=== PATIENT | female | born 2005 | race Caucasian/White ===

== ENCOUNTER 2025-01-28 16:54 | Inpatient (IN) | payer OTHER ==
[~2025-01-28] VITALS: Ht 160 cm; Wt 59.0 kg
[2025-01-28 15:51] VITALS: BP 111/63
[~2025-01-28 16:54] MED LIST: BETAMETHASONE ACETATE,SOD PHOS 30 MG/5 ML ML ONE
[2025-01-28] MEDS ORDERED: BETAMETHASONE ACETATE,SOD PHOS 30 MG/5 ML ML IM STA (17:06)
[2025-01-28] MEDS ORDERED: TERBUTALINE SULFATE 1 MG/ML AMPUL SUBCUTANEO NR ×2 (17:15→19:00)
[2025-01-28] MEDS ORDERED: MORPHINE SULFATE 4 MG/ML VIAL IV PRN (17:15)
[2025-01-28] MEDS ORDERED: RINGERS SOLUTION,LACTATED 1,000 ML IV SCH (17:15)
[2025-01-28] MEDS ORDERED: PRENATA CHEWAB1 EACH PO (17:20)
[2025-01-28] MEDS ORDERED: TERBUTALINE SULFATE 1 MG/ML AMPUL SUBCUTANEO STA (17:55)
[2025-01-28 18:07] LABS: BASO % 0.5 % (0.1-1.2); EOS # 0.12 (0.04-0.54); EOS % 1.2 % (0.7-7.0); LYMPH # 2.18 (1.18-3.74); LYMPH % 22.3 % (19.3-53.1); MEAN PLATELET VOLUME 10.70 fl (9.4-12.4); MONO # 1.00 (0.24-0.82); MONO % 10.2 % (4.7-12.5); NEUT # 6.31 (1.56-6.13); NEUT % 64.8 % (34.0-71.1); RED CELL DISTRIBUTION WIDTH 15.0 % (11.6-14.4)
[2025-01-28 18:10] LABS: URINE APPEARANCE Clear; URINE BILIRRUBIN Negative (NEGATIVE); URINE BLOOD Negative; URINE COLOR Yellow; URINE GLUCOSE Negative (NEGATIVE); URINE KETONE Negative (NEGATIVE); URINE LEUKOCYTE Trace; URINE NITRATE Negative; URINE PROTEIN Negative (NEGATIVE); URINE UROBILINOGEN 0.2 E.U./dl
[2025-01-28 18:13] LABS: URINE BACTERIA 335.0 uL (0.0-1933); URINE CAST 0.00 uL (0.0-1.40); URINE EPITHELIAL CELLS 15.0 uL (0.0-38.8); URINE RBC 2.8 uL (0.0-20.8); URINE WBC 16.5 uL (0.0-23.2)
[2025-01-28 18:25] LABS: INR 0.94
[2025-01-28 18:35] LABS: ALT/SGPT 13.0 U/L (12-78); AST/SGOT 14.0 U/L (15-37); BILIRUBIN TOTAL 0.79 mg/dL (0.3-1.2); BUN CREA RATIO 11.0 (7.0-25.0); CREATININE SERUM 0.54 mg/dL (0.55-1.02); GFR 145.44; GLOBULINA 4.0 G/DL (2.4-3.5); GLUCOSE FASTING 75.0 mg/dL (65-100); OSMOLALITY SERUM 278.0 MOSM/KG (275-295)
[2025-01-28] MEDS ORDERED: CEFAZOLIN SODIUM 1,000 MG VIAL IV SCH ×2 (19:05→21:00)
[2025-01-28 19:20] VITALS: BP 114/71
[2025-01-28 22:22] VITALS: BP 100/64
[2025-01-28 23:17] VITALS: BP 94/57
[2025-01-29 04:14] VITALS: BP 84/50
[2025-01-29 04:52] VITALS: BP 111/63
[2025-01-29 06:56] VITALS: BP 90/61
[2025-01-29] MEDS ORDERED: ERYTHROMYCIN BASE OPHT 1GM EACH TUBE OP ONE (08:45)
[2025-01-29] MEDS ORDERED: OXYTOCIN 10 UNITS/ML VIAL ONE (08:52)
[2025-01-29] MEDS ORDERED: CEFAZOLIN SODIUM 1,000 MG VIAL ONE (12:11)
[2025-01-29] MEDS ORDERED: MORPHINE SULFATE 4 MG/ML VIAL IV SCH (13:00)
[2025-01-29 15:32] LABS: BASO % 0.2 % (0.1-1.2); EOS # 0.00 (0.04-0.54); EOS % 0.0 % (0.7-7.0); LYMPH # 1.00 (1.18-3.74); LYMPH % 5.4 % (19.3-53.1); MEAN PLATELET VOLUME 10.80 fl (9.4-12.4); MONO # 1.40 (0.24-0.82); MONO % 7.5 % (4.7-12.5); NEUT # 15.98 (1.56-6.13); NEUT % 86.0 % (34.0-71.1); RED CELL DISTRIBUTION WIDTH 15.8 % (11.6-14.4)
[2025-01-29] MEDS ORDERED: BETAMETHASONE ACETATE,SOD PHOS 30 MG/5 ML ML IM NR (17:00)
[2025-01-29 18:38] VITALS: BP 113/64
[2025-01-29] MEDS ORDERED: KETOROLAC TROMETHAMINE 60 MG VIAL IM ONE (20:00)
[2025-01-30] VITALS: BP 110/72
[2025-01-30] MEDS ORDERED: OxyCODONE HCL 5 MG TABLET (ROXICODONE) PO SCH (05:00)
[2025-01-30] MEDS ORDERED: PNV,CALCIUM 72/IRON/FOLIC ACID 1 TAB TABLET PO SCH (08:00)
[2025-01-30] MEDS ORDERED: SIMETHICONE 125 MG CAPSULE PO SCH (08:00)
[2025-01-30] MEDS ORDERED: DOCUSATE SODIUM 100MG CAP PO SCH (08:00)
[2025-01-30 18:30] VITALS: BP 94/61
[2025-01-31 01:00] VITALS: BP 105/67
[2025-01-31 09:37] VITALS: BP 105/67
[2025-01-31 13:07] VITALS: BP 117/76
[2025-01-31] MEDS ORDERED: ACETAMINOPHEN 500 MG GEL..CAP PO SCH (17:00)
[2025-01-31 18:00] VITALS: BP 103/66
[2025-02-01 03:25] VITALS: BP 94/60
[2025-02-01 08:04] VITALS: BP 103/64
== END 2025-02-01 18:22 | disposition home or self-care (01) | DRG 786 ==
LOC: OBS/DEL 16:54 → O/R 01-29 04:54 → OB/GYN 01-29 04:54 → LDR 01-29 04:54 → OBS/DEL 01-29 04:54 → O/R 01-29 10:16 → OB/GYN 01-29 15:04
PROVIDERS: ADMIT Obstetrics & Gynecology; ATTEND Obstetrics & Gynecology
PROC: 4A1HXCZ Monitoring of Products of Conception, Cardiac Rate, External Approach (ICD-10-PCS; 2025-01-29)
PROC: 10D00Z1 Extraction of Products of Conception, Low, Open Approach (ICD-10-PCS; principal; 2025-01-29 10:00)
DX: O36.8330 Maternal care for abnormalities of the fetal heart rate or rhythm, third trimester, not applicable or unspecified (principal); O60.14X0 Preterm labor third trimester with preterm delivery third trimester, not applicable or unspecified; O76 Abnormality in fetal heart rate and rhythm complicating labor and delivery; Z3A.34 34 weeks gestation of pregnancy; Z37.0 Single live birth